=== PATIENT | male | born 1940 | race Caucasian/White ===

== ENCOUNTER 2024-05-28 09:19 | Outpatient (REF) | payer MEDICARE, SELFPAY ==
--- OUTSIDE RECORDS SUMMARY | 2024-05-28 11:29 | XMS_ITS | Clinical Summary ---
Author Organization [facility] Address [address] [place] [address] Care Team Providers Care Soccer Player Name Role Phone Unavailable Primary Care Provider Unavailabl e Social History Tobacco Use Types Packs/Day Years Used Date Smoking Tobacco: Never Assessed Sex and Gender Information Value Date Recorded Sex Assigned at Not on file Legal Sex Male 3:02 AM EDT Gender Identity Not on file Sexual Orientation Not on file Plan of Treatment Health Maintenance Due Date Last Done Comments DTaP/Tdap/Td (1 - Tdap) 1960 Pneumococcal 50+ years (1 of 1 - PCV) 1992 Zoster (Shingrix) (1 of 2) 1992 RSV (1 - 1-dose 75+ series) 2017 COVID-19 Vaccine (2023-2 5 season) 2024 Influenza (#1) 2024 HPV Vaccine Aged Out No longer eligi ble based on patient's age to complete this topic Hep A Aged Out No longer eligi ble based on patient's age to complete this topic Hep B Aged Out No longer eligi ble based on patient's age to complete this topic Hib Aged Out No longer eligi ble based on patient's age to complete this topic Meningococcal ACWY Aged Out No longer eligible based on patient's age to complete this topic Zoster (Zostavax) Discontinued
--- OUTSIDE RECORDS SUMMARY | 2024-05-28 11:29 | XMS_ITS | Clinical Summary ---
Author Organization [address] [place] [address] Address [address] [place] [address] Phone Care Team Providers Care Planograph Operator Name Role Phone Lamont Godfrey MD Primary Care Provider [phone] Allergies No known active allergies Medications Medication Sig Dispensed Refills Start Date End Date Status acetaminophen (TYLENOL 8 HOUR) 650 mg 8 hr tablet Take 1 tablet (650 mg total) by mouth every 12 (twelve) hours if needed. Active ascorbic acid, vitamin C, 500 mg capsule Take 500 mg by mouth 1 (one) time each day. Active aspirin 81 mg EC tablet Take 1 tablet (81 mg total) by mouth 1 (one) time each day. For 180 days 06/28/2022 Active ezetimibe (ZETIA) 10 mg tablet Take 1 tablet (10 mg total) by mouth 1 (one) time each day. 04/25/2023 Active ibuprofen (ADVIL,MOTRIN) 200 mg tablet Take 1 tablet (200 mg total) by mouth every 6 (six) hours if needed. Active metoprolol succinate (TOPROL-XL) 50 mg 24 hr tablet Take 1 tablet (50 mg total) by mouth 1 (one) time each day. 07/07/2022 Active OMEGA-3 FATTY ACIDS-FISH OIL ORAL Take by mouth. Active rosuvastatin (CRESTOR) 5 mg tablet Take 1 tablet (5 mg total) by mouth every other day. 05/25/2023 Active cholecalciferol, vitD3,/vit K2 (VITAMIN D3-VITAMIN K2 ORAL) Take by mouth. Active MULTIVITAMIN ORAL Take 1 tablet by mouth 1 (one) time each day. Active sacubitriL-valsart an (Entresto) 97-103 mg per tablet Take 1 tablet by mouth 2 (two) times a day. Active spironolactone (ALDACTONE) 25 mg tabletIndications: Atherosclerotic heart disease of [place] coronary artery without angina pectoris,Cardiomyo parisa, unspecified (CMS/HCC) TAKE 1 TABLET BY MOUTH EVERY DAY 90 tablet 2 05/13/2024 Active spironolactone (ALDACTONE) 25 mg tablet Take 1 tablet (25 mg total) by mouth 1 (one) time each day. 06/12/2023 05/13/2024 Discontinued Active Problems Problem Noted Date Diagnosed Date Ischemic cardiomyopathy 11/15/2022 Lumbar stenosis 10/13/2022 Overview (02/03/2024): Last Assessment & Plan: Mr. Farah is here for his second postop visit since a lumbar decompression at the second and third to last disc spaces. He denies any sharp back pain but will get some soreness with activity. He definitely feels that he is improved and is able to do things now without intense pain, for example, being able to bend over and pick something up from the floor and rising from the chair after sitting for long periods. On exam, seated SLR is negative, strength 5/5, sensation to light touch intact, gait is steady. At this point, he is mostly limited by osteoarthritis of the knees. He had been advised in the past that he would benefit from knee replacements but at 82 years old, he does not wish to pursue that in the prolonged postop period of inactivity. He is scheduled to have cortisone injections in the right knee sometime in January and asked about seeing an arthritis specialist. [facility] will [facility] [place]. CAD (coronary artery disease) 08/29/2022 Assessment & Plan (03/28/2024 10:42 AM EST): Patient denies any anginal symptoms. We discussed the importance of being on a low-dose aspirin in light of his coronary artery disease. I gave him 2 bottles of samples today to get him started. He will continue on his current dose of Zetia, omega-3 fatty acids and metoprolol. Instructed to call 911 or go to the emergency room should the patient begin to experience chest pain or pressure lasting greater than 10 minutes does not resolve with rest. Orders: Lipid panel; Future Lipid panel LBBB (left bundle branch block) 08/29/2022 NICM (nonischemic cardiomyopathy) 08/29/2022 Assessment & Plan (03/28/2024 11:09 AM EST): Most recent echocardiogram revealed improvement in his LVEF. Patient is euvolemic upon exam today and denies any worsening breathlessness. He continues to be active without any shortness of breath. He continues on guideline directed medical therapy of metoprolol, Entresto and spironolactone. Lumbar radiculopathy, chronic 05/17/2022 Overview (02/03/2024): Last Assessment & Plan: Mr. Farah returns to give me more history of his ongoing issues. This really began 4 years ago then somewhat subsided. He has had recurring episodes with lower back achiness and symptoms in his legs. He says that his right anterior thigh knee and upper danielson are numb all the time while in the left leg, the numbness and tingling is primarily around the knee and distal thigh but varies somewhat. He describes a prickling tingling feeling with activity but wants to be able to do all the things he normally does. This includes blacksmith thing, taking care of his property, snowplow in the driveway etc. Over the last month, he describes sharp pain at the left upper buttock when sitting on a hard surface which is relieved by standing. On exam, there is no step-off or deformity lumbar spine, he demonstrates that sharp pain in the region of the left SI joint. Seated SLR is negative, strength 5/5, sensation light touch intact, gait is steady with no assistive device. Though he discussed the MRI pains at his last visit, we reviewed this again and I recommended a lumbar decompression at the second to last disc space as well as the third to last disc space. We reviewed the details, risks, benefits and anticipated postoperative course including likely placement of a drain and overnight stay. All questions were answered and he wishes to proceed. Encounters Date Type Department Care Team Description 04/12/2024 Telephone [facility] - [facility] [address] [facility] [address] [place] [address] Rivas Leblanc [place] Results (Lipid panel) 03/28/2024 10:10 AM EST Office Visit [facility] - [address] [facility] [address] [place] [id number] Fariha Vallecillo NP Coronary artery disease due to lipid rich plaque (Primary Dx); NICM (nonischemic cardiomyopathy) (CMS/HCC) from Last 3 Months Immunizations Name Administration Dates Next Due Influenza trivalent, 0.5mL ( Fluzone High-dose) 65yo and older 02/10/2022,02/02/2021,01/31/2020,2017,02/09/2016,03/04/2015 Influenza trivalent, 0.5mL, preservative free (Fluarix; FluLaval; Fluzone) ages 6mo and older (Afluria) 3 years and older 02/10/2017 Zoster recombinant (Shingrix ) 19yo and older 05/30/2020 Surgical History Surgery Date Site/Laterality Comments CARDIAC CATHETERIZATION Medical History Medical History Date Comments CAD (coronary artery disease) LBBB (left bundle branch block) NICM (nonischemic cardiomyopathy) (CMS/HCC) Ischemic cardiomyopathy Lumbar radiculopathy Lumbar stenosis Hx of cardiac cath Social History Tobacco Use Types Packs/Day Years Used Date Smoking Tobacco: Former Cigarettes Q uit: 06/08/2022 Smokeless Tobacco: Never Tobacco Cessation:Counseling Given: Not Answered Alcohol Use Standard Drinks/Week Comments Not Currently 0 (1 standard drink = 0.6 oz pur e alcohol) Sex and Gender Information Value Date Recorded Sex Assigned at Not on file Gender Identity Not on file Sexual Orientation Not on file Job Start Date Occupation Industry Not on file Not on file Not on file Obstetrics History Last Filed Vital Signs Vital Sign Reading Time Taken Comments Blood Pressure 92/70 03/28/2024 10:12 AM EST Pulse 72 03/28/2024 10:12 AM EST Temperature - - Respiratory Rate - - Oxygen Saturation 98% 03/28/2024 10:12 AM EST Inhaled Oxygen Concentration - - Weight 96.2 kg (212 lb) 03/28/2024 10:12 AM EST Height 175.3 cm (5' 9 ) 03/28/2024 10:12 AM EST Body Mass Index 31.31 03/28/2024 10:12 AM EST Plan of Treatment Health Maintenance Due Date Last Done Comments DTaP,Tdap,and Td Vaccines (1 - Tdap) 1961 Pneumococcal Vaccine: 65+ Years (1 of 1 - PCV) 2007 RSV Immunization Patients 60+ Years Old (1 - 1-dose 75+ series) 2017 Zoster Vaccines (3 of 3) 07/25/2020 05/30/2020, 03/09 Cholesterol Screening (Lipid Panel) 04/10/2022 Depression Screening 04/10/2022 Falls Risk Assessment 04/10/2022 Medicare Annual Wellness Visit 04/10/2022 Social Influencers of Health Screening 04/10/2022 Hypertension/CHF/CAD Annual BMP Blood Test 06/06/2023 COVID-19 Vaccine Completed 03/09/2024, , 02/20/2022, Additional history exists Influenza Vaccine Completed 03/09/2024, , 02/10/2022, Additional history exists HIB Vaccines Aged Out No longer eligi ble based on patient's age to complete this topic HPV Vaccines Aged Out No longer eligi ble based on patient's age to complete this topic Hepatitis A Vaccines Aged Out No long er eligible based on patient's age to complete this topic Hepatitis B Vaccines Aged Out No long er eligible based on patient's age to complete this topic IPV Vaccines Aged Out No longer eligi ble based on patient's age to complete this topic MMR Vaccines Aged Out No longer eligi ble based on patient's age to complete this topic Meningococcal ACWY Vaccine Aged Out N o longer eligible based on patient's age to complete this topic RSV Immunization Patients Under 20 months Aged Out No longer eligible based on patient's age to complete this topic Varicella Vaccines Aged Out No longer eligible based on patient's age to complete this topic Care Teams Planograph Operator Relationship Specialty Start Date End Date Lamont Godfrey MD PCP - General 07/15/22
[2024-05-28 17:44] LABS: MANUAL DIFF FLAG NO
[2024-05-28 17:52] LABS: Basophils Absolute Auto 0.1 X10*3/uL (0.0-0.2); Basophils Percent Auto 0.6 % (0-2); Eosinophils Absolute Auto 0.3 X10*3/uL (0.0-0.4); Hematocrit 44.3 % (42.0-52.0); Hemoglobin 14.4 g/dl (14.0-18.0); Imm Gran Abs Auto 0.06 X10*3/uL (0.00-0.03); Imm Gran Pct Auto 0.7 % (0.0-0.4); Lymphocytes Absolute Auto 2.2 X10*3/uL (1.2-4.9); Lymphocytes Percent Auto 24.9 % (20-40); Mean Corpuscular HGB Conc 32.5 g/dl (31.0-36.0); Mean Corpuscular Hemoglobin 30.1 pg (27.0-33.0); Mean Corpuscular Volume 92.5 fL (80.0-98.0); Mean Platelet Volume 10.2 fL (9.4-12.4); Monocytes Absolute Auto 0.9 X10*3/uL (0.1-1.2); Monocytes Percent Auto 10.3 % (2-11); Neutrophils Absolute Auto 5.4 x10*3/uL (2.0-8.3); Neutrophils Percent Auto 60.5 % (45-73); Platelet Count 325 X10*3/uL (160-400); Red Blood Count 4.79 X10*6/uL (4.60-5.80); Red Cell Distribution Width 13.5 % (11.0-16.0); White Blood Count 8.9 X10*3/uL (4.8-10.8)
[2024-05-28 18:08] LABS: Alanine Aminotransferase 14 U/L (0-40); Aspartate Amino Transferase 24 U/L (5-37); Estimated Glomerular Filt Rate > 60
== END 2024-05-28 09:20 | disposition home or self-care (01) ==
LOC: HO.HKASLDS 09:19
PROVIDERS: Visit Provider Internal Medicine Rheumatology
DX: M70.61 Trochanteric bursitis, right hip (principal); M70.62 Trochanteric bursitis, left hip; Z79.60 Long term (current) use of unspecified immunomodulators and immunosuppressants
CPT/HCPCS: 36415; 82565; 84450; 84460; 85025; 99212

== ENCOUNTER 2024-05-28 09:19 | Outpatient (AMB) | payer MEDICARE, SELFPAY ==
[2024-05-28 09:31] VITALS: BP 130/78; PULSE 71; O2SAT 96; BMI 30.1
--- NOTE | 2024-05-28 09:31 | MHC.OFFVIS ---
Vital Signs 05/28/24 09:31 Height 5 ft 10 in Weight 210 lb BMI 30.1 BP 130/78 Blood Pressure Location Lt brachial Position Sitting Pulse 71 Pulse Source Pulse Oximeter Pulse Oximetry (%) 96 Oxygen Delivery Method Room Air Intake Visit Reasons: OA Knee Intake Note: Patient presents today for osteoarthritis of the knee. He was last seen by Dr. Anderson on 12/05/23. Allergies No Known Allergies Allergy (Verified 05/28/24 09:33) HPI HPI OA Knee: Details: Hx of back surgery and trochanteric bursitis. Hard to go up stairs due to bilateral trochanteric bursa pain and back pain, especially when carrying grocery bags. Walking around helps relieve pain. He is taking 2 Tylenol Arthritis 650 tablets with reduced pain. He is experiencing left shoulder pain from possible rotator cuff tendinopathy/tear. He has participating in physical therapy for left shoulder movement without benefit. He does exercises learned from PT in the past for hip and back strengthening 3 to 4 times a week. He had trochanteric bursa injections last visit without benefit. FORMERLY [facility], [facility] Medical History (Updated 05/28/24 @ 10:13 by Hiren Anderson MD) Left shoulder pain Osteoarthritis, knee Surgical History (Updated 05/28/24 @ 09:38 by Coleen Nails CMA) History of back surgery Social History (Updated 05/28/24 @ 09:40 by Coleen Nails CMA) Alcohol intake: current Alcohol type: beer Comment: once in a while Patient Tobacco Use Status: Former Tobacco user Review of Systems Const All systems reviewed & are unremarkable except as noted in HPI and below Physical Exam Vital Signs: Last Vital Signs Pulse 71 05/28/24 09:31 BP 130/78 05/28/24 09:31 Pulse Ox 96 05/28/24 09:31 Oxygen Delivery Method Room Air 05/28/24 09:31 BMI result Body Mass Index 30.1 Const Other: General: Comfortable Skin: No lesions seen MSK: Tender to palpate bilateral trochanteric bursa. Good hip external rotation. Good knee flexion. Assessment & Plan Assessment & Plan (1) Greater trochanteric bursitis of both hips: Comment: Chronic. Previously failed physical therapy, trochanteric bursa cortisone injections and ibuprofen without control on Tylenol 1300 mg daily. We discussed conservative management. He is agreeable to try another NSAID. Code(s): M70.61 - Trochanteric bursitis, right hip; M70.62 - Trochanteric bursitis, left hip Category: Medical Plan: Labs ordered for baseline Start meloxicam 15 mg daily Increased frequency of exercise program at home to daily Return to clinic in 3 months Orders: Orders Complete Blood Count Auto Diff Today Z79.60 - buttermaker continuous churn (current) use of unspecified immunomodulators and immunosuppressants Creatinine Today Z79.60 - buttermaker continuous churn (current) use of unspecified immunomodulators and immunosuppressants Aspartate Amino Transferase Today Z79.60 - custodial (current) use of unspecified immunomodulators and immunosuppressants Alanine Aminotransferase Today Z79.60 - custodial (current) use of unspecified immunomodulators and immunosuppressants Medications: New meloxicam 15 mg PO DAILY 30 tabs 2RF Coding Level of Care Code Est Pt Level 3 (09904) Complex EM visit Add On G2211 Diagnoses Greater trochanteric bursitis of both hips M70.61; M70.62
== END 2024-05-28 10:12 | disposition home or self-care (01) ==
PROVIDERS: Visit Provider Internal Medicine Rheumatology
DX: M70.61 Trochanteric bursitis, right hip (principal); M70.62 Trochanteric bursitis, left hip
CPT/HCPCS: 99213; G2211

== ENCOUNTER 2024-06-27 09:39 | Outpatient (REF) | payer MEDICARE, SELFPAY ==
--- NOTE | ~2024-06-27 | XR_ITS ---
CLINICAL HISTORY: M70.61 - Trochanteric bursitis, right hip 5 view, pelvis and bilateral hips Comparison: None Findings: The bones are intact. Mild arthritic changes of the left hip. Spondylosis within the visualized lumbar spine. The soft tissues are unremarkable. IMPRESSION: No acute findings. This document has been electronically signed by: Halle Morgan MD on 06/27/2024 14:47:11
--- OUTSIDE RECORDS SUMMARY | 2024-06-27 10:31 | XMS_ITS | Clinical Summary ---
Author Organization [facility] Address [address] [place] [address] Care Team Providers Care Certified Ophthalmic Assistant Name Role Phone Unavailable Primary Care Provider [...]
--- OUTSIDE RECORDS SUMMARY | 2024-06-27 10:31 | XMS_ITS | Encounter Summary ---
Author Organization [facility] Address [address] [place] [address] Care Team Providers Care Behavioral Health Tech Name Role Phone Lamont Godfrey MD Primary Care Provider [phone] Reason for Visit * Reason Onset Date Comments medication 06/14/2024 Encounter Details Date Type Department Care Team (Late st Contact Info) Description 06/14/2024 Telephone [facility] - [facility] [address] [facility] [address] [place] [phone] Mio Beck MD [address] [facility] [address] [place] [address] medication Social History Tobacco Use Types Packs/Day Years Used Date Smoking Tobacco: Former Cigarettes Q uit: 06/08/2022 Smokeless Tobacco: Never Alcohol Use Standard Drinks/Week Comments Not Currently 0 (1 standard drink = 0.6 oz pur e alcohol) Sex and Gender Information Value Date Recorded Sex Assigned at Not on file Legal Sex Male 7:53 AM EST Gender Identity Not on file Sexual Orientation Not on file documented as of this encounter Ordered Prescriptions Prescription Sig Dispense Quantity Refills Last Filled Start Date End Date valsartan (DIOVAN) 80 mg tabletIndications: NICM (nonischemic cardiomyopathy) (CMS/HCC),Coronary artery disease due to lipid rich plaque Take 1 tablet (80 mg total) by mouth 1 (one) time each day. 90 each 3 06/14/2024 06/14/2025 documented in this encounter Progress Notes * Alissa Guo RN - 06/14/2024 2:42 PM EST Patient states now only taking Entresto 97-103 daily and not BID. Spoke with TORSTEN who stated to havepatient continue on daily dose of Entresto until he finishes it and then change to Valsartan 80 mg daily. He was made aware script sent in. * Fariha Vallecillo NP - 06/14/2024 2:26 PM EST Valsartan ordered and sent to pharmacy of choice. Please ensure the patient is aware this is a oncea day medication * Alissa Guo RN - 06/14/2024 2:10 PM EST Spoke with . Valsartan will cost $12.00 for a 90 day supply. She req script go to [place], [place] He will finish up the Entresto 97-103 1 tab BID and then switch to Valsartan. * Alissa Guo RN - 06/14/2024 10:14 AM EST I called and left message on answering machine with TORSTEN response and asked them to c/b with the information and sooner if further questions. * Fariha Vallecillo NP - 06/14/2024 10:06 AM EST Unfortunately, there is no other medication in this class. We could switch the patient to valsartan. Can you please ask him to investigate the cost of this with his insurance company. * Alissa Guo RN - 06/14/2024 9:39 AM EST Spoke with (patient not home) who states can't afford the copay/deductible of $500.00 and thatpatient has only 12-15 pills of Entresto 97-103mg tabs. I made her aware we unfortunately do not receive samples in the highest dose of Entresto. I asked her if he has been taking as prescribed BID and she stated she hoped so but could not confirm. Asking what can be prescribed instead. I also stated they should call insurance to see what alternative medication would be covered in that category. * Yen Chaudhry - 06/14/2024 9:18 AM EST The patient called his Entresto copay increased to $500. He can not afford this and would like to change to an alternative medication. Please call him back at [phone]. documented in this encounter Plan of Treatment Not on file documented as of this encounter Visit Diagnoses Diagnosis NICM (nonischemic cardiomyopathy) (CMS/[facility])- Primary Coronary artery disease due to lipid rich plaque documented in this encounter Discontinued Medications Medication Sig Discontinue Reason Start Date End Da te sacubitriL-valsartan (Entresto) 97-103 mg per tablet Take 1 tablet by mouth 2 (two) times a day. Cost of medication 06/14/2024 documented as of this encounter Care Teams Behavioral Health Tech Relationship Specialty Start Date End Date Lamont Godfrey MD PCP - General 07/15/22 documented as of this encounter
--- OUTSIDE RECORDS SUMMARY | 2024-06-27 10:31 | XMS_ITS | Clinical Summary ---
Author Organization [address] [place] [address] Address [address] [place] [address] Phone Care Team Providers Care Group Managing Director Name Role Phone Lamont Godfrey MD Primary Care Provider [phone] Allergies No known active allergies Medications acetaminophen (TYLENOL 8 HOUR) 650 mg 8 hr tablet Take 1 tablet (650 mg total) by mouth every 12 (twelve) hours if needed. Active ascorbic acid, vitamin C, 500 mg capsule Take 500 mg by mouth 1 (one) time each day. Active aspirin 81 mg EC tablet Take 1 tablet (81 mg total) by mouth 1 (one) time each day. For 180 days 3 Active ezetimibe (ZETIA) 10 mg tablet Take 1 tablet (10 mg total) by mouth 1 (one) time each day. 3 Active ibuprofen (ADVIL,MOTRIN) 200 mg tablet Take 1 tablet (200 mg total) by mouth every 6 (six) hours if needed. Active metoprolol succinate (TOPROL-XL) 50 mg 24 hr tablet Take 1 tablet (50 mg total) by mouth 1 (one) time each day. 3 Active OMEGA-3 FATTY ACIDS-FISH OIL ORAL Take by mouth. Active rosuvastatin (CRESTOR) 5 mg tablet Take 1 tablet (5 mg total) by mouth every other day. 4 Active cholecalciferol, vitD3,/vit K2 (VITAMIN D3-VITAMIN K2 ORAL) Take by mouth. Active MULTIVITAMIN ORAL Take 1 tablet by mouth 1 (one) time each day. Active spironolactone (ALDACTONE) 25 mg tabletIndication s:Atheroscleroti c heart disease of [place] coronary artery without angina pectoris,Cardiom yopathy, unspecified (CMS/HCC) TAKE 1 TABLET BY MOUTH EVERY DAY 90 tablet 2 5 Active valsartan (DIOVAN) 80 mg tabletIndication s:NICM (nonischemic cardiomyopathy) (CMS/HCC),[place] artery disease due to lipid rich plaque Take 1 tablet (80 mg total) by mouth 1 (one) time each day. 90 each 3 5 06/14/19 26 Active sacubitriL-valsa rtan (Entresto) 97-103 mg per tablet Take 1 tablet by mouth 2 (two) times a day. 06/14/19 25 Discontinu ed(Cost of medication ) Active Problems Problem Noted Date Diagnosed Date [...] [facility] [place]. CAD (coronary artery disease) 08/29/2022 Assessment & [...] Encounters Date Type Department Care Team Description 06/14/2024 Telephone [facility] - [address] [place] [address] Mio Beck MD medication 04/12/2024 Telephone [facility] - [address] [place] [address] Rivas Leblanc [place] Results (Lipid panel) 03/28/2024 10:10 AM EST Office Visit [facility] - [address] [place] [address] Fariha Vallecillo NP Coronary artery disease due [...] on file Sexual Orientation Not on file Obstetrics History Last Filed [...] Vaccines (1 - Tdap) 1961 Pneumococcal Vaccine: 50+ Years (1 of 1 - PCV) 1992 RSV Immunization Patients 60+ Years Old (1 [...] patient's age to complete this topic Meningococcal B Vacine Aged Out No lo nger eligible based on patient's age to complete this topic RSV Immunization Patients Under 20 months Aged Out No longer eligible based on patient's age to complete this topic Varicella Vaccines Aged Out No longer eligible based on patient's age to complete this topic Insurance [employer] Care Teams Group Managing Director Relationship Specialty Start Date End Date Lamont Godfrey MD PCP - General 07/15/22
== END 2024-06-27 09:40 | disposition home or self-care (01) ==
LOC: HO.XRAY 09:39
PROVIDERS: Visit Provider Internal Medicine Rheumatology
DX: M70.61 Trochanteric bursitis, right hip (principal); M70.62 Trochanteric bursitis, left hip
CPT/HCPCS: 73522

== ENCOUNTER → 2024-06-27 09:48 | Outpatient (BNV) | payer MEDICARE, SELFPAY | PROVIDERS: Visit Provider Radiology Diagnostic Radiology | DX: M70.61 Trochanteric bursitis, right hip (principal); M70.62 Trochanteric bursitis, left hip | CPT/HCPCS: 73522 ==

== ENCOUNTER 2024-08-27 10:21 | Outpatient (AMB) | payer MEDICARE, SELFPAY ==
--- NOTE | 2024-08-27 10:30 | A.OFFVIS_ITS ---
Vital Signs 08/27/24 10:32 Weight 207 lb 10.807 oz BP 130/90 H Blood Pressure Location Lt brachial Position Sitting Pulse 81 Pulse Source Pulse Oximeter Pulse Oximetry (%) 95 Oxygen Delivery Method Room Air Intake Visit Reasons: Follow up 3mo Intake Note: Patient presents today for osteoarthritis of the knee. Accompanied by: Self / Same As Patient Allergies No Known Allergies Allergy (Verified 05/28/24 09:33) HPI HPI Follow up 3mo: Details: No change in pain with diclofenac. He continues to have pain that he localizes to the lateral hip starting on the right side than the left lateral hip after walking. Then he begins to have lower back pain. He has to rest for about 10 minutes before he can resume walking again. He had some benefit with Arthritis strength Tylenol but does not want to be on pills regularly. He continues to do exercises 4 to 5 times a week. He went to physical therapy for trochanteric bursitis in the past. He is currently in physical therapy for left shoulder pain. Orthopedic surgeon is holding off on replacement at this time. [facility] Medical History Left shoulder pain Osteoarthritis, knee Surgical History History of back surgery Social History Alcohol intake: current Alcohol type: beer Comment: once in a while Patient Tobacco Use Status: Former Tobacco user Review of Systems Const All systems reviewed & are unremarkable except as noted in HPI and below Physical Exam Vital Signs: Last Vital Signs Pulse 81 08/27/24 10:32 BP 130/90 H 08/27/24 10:32 Pulse Ox 95 08/27/24 10:32 Oxygen Delivery Method Room Air 08/27/24 10:32 Const Other: General: Comfortable Skin: No lesions seen MSK: Tender to palpate bilateral trochanteric bursa. Tender to palpate bilateral anterior superior iliac spine. Good hip external rotation. Good knee flexion. Results Reviewed Results Reviewed: Labs reviewed from May 2024. Assessment & Plan Assessment & Plan (1) Greater trochanteric bursitis of both hips: Comment: Chronic. He also has pain localized to anterior superior iliac spine contributing likely representing tendon and muscle strain where multiple tendons and muscles attach. Bilateral hip x-rays revealed mild left hip osteoarthritis but his pain is not localized to hip joint. Previously failed physical therapy, trochanteric bursa cortisone injections, ibuprofen, Tylenol, diclofenac p.o. and gel. He felt more relief on ibuprofen then any of the other agents that he has tried in the past but he does not want to be on regular pills for pain control. He has agreed to try physical therapy again with manual, modalities, TENs unit trial. Code(s): M70.61 - Trochanteric bursitis, right hip; M70.62 - Trochanteric bursitis, left hip Category: Medical Plan: PT ordered for patient to have local to his home. Requisition given to patient. He will try lidocaine patch Return to clinic in 3 months (2) Arthralgia, pelvis: Comment: Localized to ASIS. Code(s): M25.559 - Pain in unspecified hip Category: Medical Plan: PT ordered for patient to have done local to his home. Requisition given to patient. Orders: Orders PT Evaluation and Treatment Today M25.559 - Pain in unspecified hip, M70.61 - Trochanteric bursitis, right hip, M70.62 - Trochanteric bursitis, left hip Coding Level of Care Code Est Pt Level 3 (09433) Complex EM visit Add On G2211 Diagnoses Greater trochanteric bursitis of both hips M70.61; M70.62 Arthralgia, pelvis M25.559
[2024-08-27 10:32] VITALS: BP 130/90; PULSE 81; O2SAT 95
--- OUTSIDE RECORDS SUMMARY | 2024-08-27 11:58 | XMS_ITS | Clinical Summary ---
Author Organization [address] [place] [address] Address [address] [place] [address] Phone Care Team Providers Care Parole Hearing Officer Name Role Phone Lamont Godfrey MD Primary Care Provider [phone] Allergies No known active allergies Medications acetaminophen [...] mg tabletIndication s:Atheroscleroti c heart disease of [place] coronary artery without angina pectoris,Cardiom yopathy, unspecified (CMS/HCC V24, CMS/HCC V28) TAKE 1 TABLET BY MOUTH EVERY DAY 90 tablet 2 05/13/2024 Active valsartan (DIOVAN) 80 mg tabletIndication s:NICM (nonischemic cardiomyopathy) (CMS/HCC V24, CMS/HCC V28),Coronary artery disease due to lipid rich plaque Take 1 tablet (80 mg total) by mouth 1 (one) time each day. 90 each 3 06/14/2024 Active Active Problems Problem Noted Date Diagnosed Date [...] him to [facility] [place]. CAD (coronary artery disease) 08/29/2022 Assessment & [...] (left bundle branch block) 08/29/2022 NICM (nonischemic cardiomyop athy) ([facility] V24, [facility] V28) 08/29/2022 Assessment & Plan (03/28/2024 11:09 AM [...] Type Department Care Team Description 06/14/2024 Telephone [facility] [phone] [facility] [address] [place] [address] Mio Beck MD medication from Last 3 Months Immunizations Name Administration [...] (left bundle branch block) NICM (nonischemic cardiomyopathy) (CMS/HCC V24, CMS/HCC V28) Ischemic cardiomyopathy Lumbar radiculopathy Lumbar stenosis Hx [...] of 1 - PCV) 1992 RSV Immunization Adult Patients (1 - 1-dose 75+ series) 2017 Zoster [...] age to complete this topic Meningococcal B Vaccine Aged Out No l onger eligible based on patient's age to complete this topic RSV Immunization Patients Under 20 months Aged Out No longer eligible based on patient's age to complete this topic Varicella Vaccines Aged Out No longer eligible based on patient's age to complete this topic Insurance [employer] Care Teams Parole Hearing Officer Relationship Specialty Start Date End Date Lamont Godfrey MD PCP - General 07/15/22
--- OUTSIDE RECORDS SUMMARY | 2024-08-27 11:58 | XMS_ITS | Clinical Summary ---
Author Organization [facility] Address [address] [place] [address] Care Team Providers Care Bisque Cleaner Name Role Phone Unavailable Primary Care Provider [...]
== END 2024-08-27 11:08 | disposition home or self-care (01) ==
LOC: HO.RHES 10:22
PROVIDERS: PCP Internal Medicine; Visit Provider Internal Medicine Rheumatology
DX: M70.61 Trochanteric bursitis, right hip (principal); M70.62 Trochanteric bursitis, left hip; M25.559 Pain in unspecified hip
CPT/HCPCS: 99213; G2211

== ENCOUNTER → 2024-08-27 10:21 | Outpatient (BNVA) | payer MEDICARE, SELFPAY | PROVIDERS: PCP Internal Medicine; Visit Provider Internal Medicine Rheumatology | DX: M70.61 Trochanteric bursitis, right hip (principal); M70.62 Trochanteric bursitis, left hip | CPT/HCPCS: 99212 ==